=== PATIENT | female | born 1960 | race Caucasian/White ===

== ENCOUNTER → 2018-06-04 09:01 | Outpatient (CLI) | payer OTHER, SELFPAY ==
[2018-06-04 10:31] LABS: Add Manual Diff / Slide Review NO; Basophils Percent Auto 0.9 % (0-2); Eosinophils Percent Auto 4.1 % (2-4); Hematocrit 40.7 % (36-46); Hemoglobin 13.8 g/dL (12.0-16.0); Lymphocytes Percent Auto 31.4 % (25-40); Mean Corpuscular HGB Conc 33.9 % (30-36); Mean Corpuscular Hemoglobin 32.7 PG (26-34); Mean Corpuscular Volume 96.4 fL (80-100); Monocytes Percent Auto 8.6 % (3-14); Neutrophils Absolute Auto 3400 /uL (3000-5900); Platelet Count 180 X10^3/uL (150-400); Red Blood Cell Count 4.23 X10^6/uL (4.0-5.2); Red Cell Distribution Width 12.3 % (11.6-14.8); White Blood Cell Count 6.2 X10^3/uL (4.5-11.0)
[2018-06-04 10:42] LABS: Alanine Aminotransferase 41 IU/L (9-52); Albumin 4.4 g/dL (3.5-5.0); Albumin Globulin Ratio 1.9 (1.0-2.8); Alkaline Phosphatase 49 U/L (38-126); Aspartate Aminotransferase 31 IU/L (14-36); BUN Creatinine Ratio 27.1 (6-22); Bilirubin Total 0.6 mg/dL (0.2-1.3); Blood Urea Nitrogen 19 mg/dL (7-17); Calcium 9.8 mg/dL (8.4-10.2); Carbon Dioxide 26 mmol/L (22-32); Chloride 102 mmol/L (98-107); Cholesterol 168 mg/dL (140-199); Estimated Glomerular Filt Rate > 60.0 mL/min (>60); Globulin 2.3 g/dL (1.7-4.1); Glucose 91 mg/dL (70-100); HDL Cholesterol 53 mg/dL (40-60); HEMOLYSIS < 15 (0-50); LDL Cholesterol Calculated 105 mg/dL (<100); Potassium 4.9 mmol/L (3.4-5.1); Sodium 141 mmol/L (137-145); Total Protein 6.7 g/dL (6.3-8.2); Triglycerides 48 mg/dL (35-150)
[2018-06-04 11:13] LABS: Thyroid Stimulating Hormone 1.57 uIU/mL (0.47-4.68)
== END ==
PROVIDERS: Visit Provider Internal Medicine
DX: Z00.00 Encounter for general adult medical examination without abnormal findings (principal)
CPT/HCPCS: 36415; 80053; 80061; 84443; 85025

== ENCOUNTER 2018-06-23 11:15 | Day surgery (SDC) | payer OTHER, SELFPAY ==
[2018-06-23 11:38] VITALS: BP 112/71; PULSE 67; RESP 15; TEMP 36.2; O2SAT 99; BMI 26.1
[2018-06-23] MEDS: SODIUM CHLORIDE 0.9% 1,000 ML 200 ML IV (11:48)
[2018-06-23] MEDS: MIDAZOLAM 5 MG/5 ML VIAL IV (11:55)
[2018-06-23] MEDS: fentaNYL 250 MCG/5 ML INJ IV (11:55)
[2018-06-23 12:20] VITALS: BP 100/63; PULSE 67; RESP 16; TEMP 37; O2SAT 98
--- NOTE | 2018-06-23 14:11 | OP_ITS ---
DATE OF SERVICE: 06/23/2018 PREOP DIAGNOSIS: Screening colonoscopy. POSTOP DIAGNOSES: Normal colonoscopy. OPERATION: Total colonoscopy to the cecum. SURGEON: Ye Betancourt MD DESCRIPTION OF PROCEDURE: The patient was properly identified during surgical pause, given conscious sedation with Versed and fentanyl. The flexible fiberoptic colonoscope inserted transanally to the cecum. Patient has a normal exam. No polyps, no tumors, no diverticulosis. The procedure was very well tolerated. Amanda Nelson - /nadine/frederick doc#: [id number]/job#: [id number] dd: 06/23/2018 12:25:00 dt: 06/23/2018 14:00:00 DICTATING MD/COPIES TO: Ye Betacnourt MD COPIES MNE: MATTHEW
--- NOTE | 2018-06-24 07:47 | HP_ITS ---
DATE OF SERVICE: 06/23/2018 PREOPERATIVE HISTORY AND PHYSICAL HISTORY OF PRESENT ILLNESS: Coming in for a screening colonoscopy, having had no prior colonoscopy and has no melena, no hematochezia, no abdominal pain. PAST MEDICAL HISTORY: Denies abdominal surgical procedures. No history of hypertension, diabetes, or heart disease. MEDICATIONS: Takes no significant medications. ALLERGIES: HAS NO KNOWN MEDICAL ALLERGIES. REVIEW OF SYSTEMS: System review is negative for chest pain, unusual shortness of breath. GI: Negative. : Negative. NEUROLOGIC: No strokes. No seizures.. PHYSICAL EXAMINATION VITAL SIGNS: Blood pressure 130/80. Heart rate in the 80s. HEENT: Ears, nose, and throat are normal. NECK: No adenopathy. LUNGS: Clear. HEART: Regular rhythm. She may have a slight systolic ejection murmur. No diastolic murmurs. ABDOMEN: Soft. No organomegaly. No tenderness. RECTAL: Exam will be done at the time of colonoscopy. DIAGNOSIS: Screening colonoscopy. Amanda Nelson - /nadine/frederick doc#: [id number]/job#: [id number] dd: 06/23/2018 11:49:00 dt: 06/23/2018 13:42:00 DICTATING MD/COPIES TO: Ye Betancourt MD COPIES MNE: MATTHEW
== END 2018-06-23 12:55 | disposition home or self-care (01) ==
PROVIDERS: Visit Provider Surgery
PROC: 0DJD8ZZ Inspection of Lower Intestinal Tract, Via Natural or Artificial Opening Endoscopic (ICD-10-PCS; CPT 45378; principal; 2018-06-23 12:45)
DX: Z12.11 Encounter for screening for malignant neoplasm of colon (principal)
CPT/HCPCS: 45378; J2250; J3010

== ENCOUNTER → 2018-09-27 09:24 | Outpatient (CLI) | payer OTHER, SELFPAY ==
--- NOTE | 2018-09-27 | DI.MG.S_ITS ---
BILATERAL DIGITAL SCREENING MAMMOGRAM 3D/2D WITH CAD: 09/27/2018 CLINICAL: Routine screening. Comparison is made to exams dated: 07/10/2017 mammogram, 11/18/2014 mammogram, and 08/14/2013 mammogram - [facility]. There are scattered fibroglandular elements in both breasts. Current study was also evaluated with a Computer Aided Detection (CAD) system. No significant masses, calcifications, or other findings are seen in either breast. There has been no significant interval change. IMPRESSION: NEGATIVE There is no mammographic evidence of malignancy. A 1 year screening mammogram is recommended. This exam was interpreted at Station ID: [id number]. NOTE: For mammograms, a report in lay terms will be sent to the patient. Approximately 15% of breast malignancies will not be visualized mammographically. In the management of a palpable breast mass, a negative mammogram must not discourage biopsy of a clinically suspicious lesion. Electronically Signed By: Kyle Bose M.D. at/melida:09/29/2018 12:32:52 letter sent: Normal Exam ACR BI-RADS Category 1: Negative 3341F
== END ==
PROVIDERS: Visit Provider Internal Medicine
DX: Z12.31 Encounter for screening mammogram for malignant neoplasm of breast (principal)
CPT/HCPCS: 77063; 77067

== ENCOUNTER → 2020-09-03 14:46 | Outpatient (CLI) | payer OTHER, SELFPAY ==
--- NOTE | 2020-09-03 14:47 | DI.MG.S_ITS ---
BILATERAL DIGITAL SCREENING MAMMOGRAM 3D/2D WITH CAD: 09/03/2020 CLINICAL: Routine screening. Comparison is made to exams dated: 09/27/2018 mammogram, 07/10/2017 mammogram, and 11/18/2014 mammogram - [facility]. There are scattered fibroglandular elements in both breasts. Current study was also evaluated with a Computer Aided Detection (CAD) system. No significant masses, calcifications, or other findings are seen in either breast. There has been no significant interval change. IMPRESSION: NEGATIVE There is no mammographic evidence of malignancy. A 1 year screening mammogram is recommended. This exam was interpreted at Station ID: [id number]. NOTE: For mammograms, a report in lay terms will be sent to the patient. Approximately 15% of breast malignancies will not be visualized mammographically. In the management of a palpable breast mass, a negative mammogram must not discourage biopsy of a clinically suspicious lesion. Electronically Signed By: Kyle parra/melida:09/05/2020 09:05:43 letter sent: Normal Exam ACR BI-RADS Category 1: Negative 3341F
== END ==
PROVIDERS: Referring Provider Internal Medicine; Visit Provider Internal Medicine
DX: Z12.31 Encounter for screening mammogram for malignant neoplasm of breast (principal)
CPT/HCPCS: 77063; 77067

== ENCOUNTER 2020-10-20 16:15 | Emergency (ER) | payer SELFPAY ==
[2020-10-20 16:18] VITALS: BP 128/63; PULSE 74; RESP 15; TEMP 36.3; O2SAT 99; BMI 24.9
--- NOTE | 2020-10-20 16:23 | DI.RAD.S_ITS ---
PROCEDURE: XR WRIST RT MIN 3V INDICATIONS: wrist injury TECHNIQUE: 4 views of the wrist were acquired. COMPARISON: None. FINDINGS: Bones: Comminuted, intra-articular fracture of the distal radius noted. Scaphoid view: Scaphoid is intact. Soft tissues: No suspicious soft tissue calcifications. IMPRESSION: Comminuted, intra-articular distal radius fracture. Dictated by: Iris Parker MD, PhD on 10/20/2020 at 16:49 Approved by: Iris Parker MD, PhD on 10/20/2020 at 16:51
--- NOTE | 2020-10-20 18:00 | ED_ITS ---
HPI - Extremity Injury (Upper) General Chief Complaint: Extremity Injury, Upper Stated Complaint: right wrist injury Time Seen by Provider: 10/20/20 18:00 Source: patient Mode of arrival: Ambulatory Limitations: no limitations History of Present Illness HPI narrative: 60-year-old otherwise healthy woman who was roller skating with her grandson earlier today and had a fall on her outstretched right hand and has suffered a right distal radius fracture. Related Data Home Medications Medication Instructions Recorded Confirmed No Known Home Medications 06/09/18 06/23/18 Allergies Allergy/AdvReac Type Severity Reaction Status Date / Time No Known Drug Allergies Allergy Verified 10/20/20 16:20 Review of Systems Review of Systems Narrative: Pertinent positive and negative findings as per HPI Remainder of review of systems is otherwise unremarkable for Constitutional: Fevers, chills, weakness ENT: No sore throat, neck pain, ear pain CV: Chest pain, palpitations, Respiratory: Cough, wheeze, dyspnea GI: Nausea, vomiting, diarrhea, : Dysuria, hematuria, Patient History Medical History Chronic cough (~2014) Hyperlipidemia Surgical History Anesthesia History of third molar tooth extraction (~1978) History of tonsillectomy (~1970) Family History Father Age: 89 CAD (coronary artery disease) Hyperlipidemia Hypertension Grandfather Lung cancer Grandmother Lung cancer Mother Age: 89 Exposure to fenfluramine- phentermine combination Grandmother Appendicitis Sister Enlarged heart Son Congenital heart anomaly Social History household members: spouse Smoking Status: Former smoker Smoking Status: Former smoker alcohol intake frequency: a few times a week Alcohol type: wine Substance Use Type: does not use Exam Narrative Exam Narrative: General: Alert appropriate in no acute distress Respiratory: Able to speak in full sentences, no obvious respiratory distress Skin: No obvious rashes, warm and dry Neurologic: Grossly intact no obvious asymmetries or abnormalities Psych; appropriate insight and affect, cooperative Right wrist with ecchymosis and some swelling. Decreased range of motion secondary to pain med neurovascularly intact. No contusions or skin breakdown. Initial Vital Signs Initial Vital Signs: Vital Signs Temperature 97.4 F L 10/20/20 16:18 Pulse Rate 74 10/20/20 16:18 Respiratory Rate 15 10/20/20 16:18 Blood Pressure 128/63 10/20/20 16:18 Pulse Oximetry 99 10/20/20 16:18 Procedures Orthopedic Splinting/Casting Right distal radius fracture: Side: right Upper Extremity Injury Location: wrist Upper Extremity Immobilizer: volar splint Other Orthopedic Equipment: other (Sling) Post splinting neuro exam: intact Post splinting vascular exam: intact Placed by: Provider Course Orders Ordered: ED Orders 10/20/20 16:23 XR wrist RT min 3V Stat 10/20/20 18:59 CT UE RT wo con Stat Vital Signs Vital signs: Vital Signs - 8 hr 10/20/20 16:18 10/20/20 18:35 Temperature 97.4 F L Pulse Rate 74 Pulse Rate [Right] 67 Respiratory Rate 15 Blood Pressure 128/63 Pulse Oximetry 99 MDM - Extremity Injury (Upper) Imaging Data XR wrist: Radiologist's Impression: FINDINGS: Bones: Comminuted, intra-articular fracture of the distal radius noted. Scaphoid view: Scaphoid is intact. Soft tissues: No suspicious soft tissue calcifications. IMPRESSION: Comminuted, intra-articular distal radius fracture. Dictated by: Iris Parker MD, PhD on 10/20/2020 at 16:49 MDM Narrative Medical decision making narrative: 60-year-old woman with comminuted intra- articular distal radius fracture. She is splinted. After discussion with Dr. Kebede, preoperative CT scan of the wrist is ordered. Patient will follow-up with Dr. Kebede in the next week for definitive treatment. Care is reviewed with Dr. Kebede patient is safe for home discharge Discharge Plan Departure Patient Disposition: Home Clinical Impression: Distal radius fracture, right Qualifiers: Encounter type: initial encounter Fracture type: closed Fracture morphology: unspecified fracture morphology Qualified Code(s): S52.501A - Unspecified fracture of the lower end of right radius, initial encounter for closed fracture Instructions: DI for Wrist Fracture Activity Restrictions/Additional Instructions: Thank you for coming in today You did break your wrist and the fracture lines do go into the joint itself. You have been placed in a splint and this needs to stay on until you see the orthopedic surgeon. You may well need surgery for this to heal completely. We did do a CT scan in the emergency department to help the orthopedic surgeon treat you most appropriately. Dr. Kebede will be expecting to see you in the office sometime next week. Please call tomorrow to schedule an appointment I hope you heal quickly Prescriptions: No Action No Known Home Medications RF: 0 Referrals: Ana Kebede MD [Physician] -
[2020-10-20 18:35] VITALS: PULSE 67
--- NOTE | 2020-10-20 18:59 | DI.CT.S_ITS ---
PROCEDURE: CT UE RT WO CON INDICATIONS: wrist, pre-op TECHNIQUE: Noncontrast 1 mm axial sections acquired through the carpal bones, with coronal and sagittal reformats. COMPARISON: [facility], CR, XR WRIST RT MIN 3V, 10/20/2020, 16:21. FINDINGS: Image quality: Excellent. Bones: There is a comminuted mildly impacted fracture of the distal radius with involvement of the radiocarpal and distal radioulnar joints. The ulnar appears intact. Remaining visualized osseous structures in the hand also appear intact. Soft tissues: There is periarticular soft tissue swelling and subcutaneous edema. Visualized flexor and extensor tendons appear intact. IMPRESSION: 1. Comminuted mildly impacted intra-articular fracture of the distal radius. Dictated by: Kamaljit Saavedra M.D. on 10/20/2020 at 20:07 Approved by: Kamaljit Saavedra M.D. on 10/20/2020 at 20:14
[2020-10-20 20:27] VITALS: BP 151/68; PULSE 76; RESP 14; O2SAT 100
== END 2020-10-20 20:30 | disposition home or self-care (01) ==
PROVIDERS: Emergency Provider Emergency Medicine
DX: S52.501A Unspecified fracture of the lower end of right radius, initial encounter for closed fracture (principal); V00.121A Fall from non-in-line roller-skates, initial encounter
CPT/HCPCS: 29125; 73110; 73200; 99282; 99283

== ENCOUNTER 2020-10-21 13:34 | Day surgery (SDC) | payer SELFPAY ==
[2020-10-21 14:10] VITALS: BP 131/57; PULSE 62; RESP 16; TEMP 37.2; O2SAT 100
[2020-10-21 14:16] VITALS: BMI 24.9
[2020-10-21 14:23] LABS: COVID19 -Nasal RAPID Negative (Negative)
[2020-10-21] MEDS: LACTATED RINGERS 1,000 ML 42 ML IV (14:34)
--- NOTE | 2020-10-21 16:27 | P.HP_ITS ---
History of Present Illness History of Present Illness Date Patient Seen: 10/21/20 Time Patient Seen: 16:27 Date of Onset of Symptoms: 10/20/20 Chief complaint: SDC Narrative: This is a pleasant 60-year-old female who was roller skating with her grandson when she got crashed into by a child skater and fell on her outstretched right hand. She is right-hand dominant. She is athletic she works out and she wishes she had gone skiing Instead of roller skating. Patient History Medical History Chronic cough (~2014) Hyperlipidemia Surgical History Anesthesia History of third molar tooth extraction (~1978) History of tonsillectomy (~1970) Family & Social History Family History Father Age: 89 CAD (coronary artery disease) Hyperlipidemia Hypertension Grandfather Lung cancer Grandmother Lung cancer Mother Age: 89 Exposure to fenfluramine- phentermine combination Grandmother Appendicitis Sister Enlarged heart Son Congenital heart anomaly Social History: household members spouse Tobacco & Substance use: Smoking Status Former smoker alcohol intake frequency a few times a week Substance Use Type does not use Meds Home Medications and Allergies Home Medications Medication Instructions Recorded Confirmed Type No Known Home Medications 06/09/18 10/21/20 History Allergies Allergy/AdvReac Type Severity Reaction Status Date / Time No Known Drug Allergies Allergy Verified 10/20/20 16:20 Review of Systems Review of Systems Narrative: she is healthy has no medical problems and had no issues other than her right wrist pain. Exam Vital Signs (past 8 hours): - 10/21/20 14:10 Temperature 98.9 F Pulse Rate 62 Respiratory Rate 16 Blood Pressure 131/57 L Pulse Oximetry 100 Oxygen Delivery Method Room Air Narrative Exam Narrative: HEENT is benign lungs are clear cor regular rate and rhythm abdomen soft and benign, her right upper extremity has obvious swelling in the in fingers distally she is able to fire her finger flexors and extensors, she has minimal numbness distally on the palmar and dorsal aspect of her hand, she has fair range of motion into her elbow and fair range of motion in her shoulder. Objective Labs Labs: Laboratory Results - last 24 hr 10/21/20 14:00 SARS-CoV-2 (PCR) Negative X-rays show a comminuted intra-articular right distal radius fracture. CT scan confirms that it is comminuted and intra-articular with displacement. It is multiple more than 3 fragments. Assessment & Plan Assessment & Plan narrative: The comminuted displaced right distal intra- articular radius fracture recommendations and plan is for open reduction internal fixation. The procedure alternatives risks benefits and complications were discussed in detail. She is physically active she is right hand dominant and she likes to be athletic and play pickleball. We will go ahead and proceed with ORIF today.
--- NOTE | 2020-10-21 16:31 | PM.OP.1 ---
Operative Date/Time/Diagnoses Date of procedure: 10/21/20 Time of procedure: 16:47 Pre-op diagnosis: Right comminuted intra-articular distal radius fracture with displacement Post-op diagnosis: same Procedure & Clinicians Procedure: open reduction internal fixation right comminuted 3+ part distal intra-articular radius fracture Same procedure as scheduled: Yes Indications: this is a 60-year-old female was skating with her grandson and fell on her outstretched right hand and sustained a displaced intra-articular right distal radius fracture. She is brought the operating room for open reduction internal fixation. Surgeon: Ana Kebede Vending Machine Technician: Sanchez Pritchett Anesthesia Type: General Operative Notes Findings: comminuted distal radius fracture. Acceptable reduction and stable fixation Closure Type: primary Specimen(s): none sent Prosthetic devices, grafts, tissues, transplants, or devices: DVR anatomic plate volar radius, short right narrow Estimated Blood Loss (mL): 50 Blood products transfused: none Tourniquet time (min): 70 Procedure in detail: patient is brought to the operating room. She underwent the induction of a general anesthesia. Her right upper extremities prepped draped standard sterile fashion. High arm tourniquet was applied and elevate it at 250 mm of mercury for 70 minutes she was given IV antibiotics. A time-out was performed. A volar incision was made dissection was carried out through skin and subcutaneous tissues. Self-retaining retractors were used as well as right nails. Dissection was carried out down along the flexor carpi radialis. It was retracted ulnarly and an incision was made in the underlying sheath. The muscle was gently stripped from the distal radius. There was good visualization of the fracture. Fracture was anatomically reduced. There was significant displacement of the motion volar fragment and there was separate radial styloid fragment. The fracture was meticulously reduced and held it was then carefully fixed with DVR volar plate which is initially secured to the shaft and then the plate was and fracture were adjusted distally to optimize fixation. There was adequate fixation of the distal radius and good overall alignment. She did have fairly soft bone. There was some comminution. A temporarily fix the radial styloid fracture fragment piece with a separate K-wire. And then was able to ski secure the radial styloid Fragment with screws through the plate. it was a comminuted intra-articular 3+ fragment distal radius but acceptable alignment and reduction was achieved. Mini C-arm confirmed position of the plate screws and fracture. The wound was meticulously irrigated with normal saline. Marcaine was injected. I was able to remove the separate K-wire and the root radial fragment appeared stable. The muscle was reapproximated to the radius with interrupted Vicryl. The skin was reapproximated with several interrupted Vicryl and nylon. The wound was dressed sterilely and she was placed in a short-arm sugar-tong splint. She tolerated the procedure well. Complications: none Post-operative Condition: stable Disposition: same day surgery Plan for aftercare: elevate wrist. Return to clinic in 10 days for x-rays out of splint and probable suture removal.
[2020-10-21] MEDS: CEFAZOLIN 2 GM/100 ML FROZ.PIGGY IV (16:40)
--- NOTE | 2020-10-21 17:15 | SUR.OPER ---
Supine on padded OR bed, head on pillow, left arm secured on padded arm boards at <90 degrees abduction, right arm on padded wide arm board and in control of the surgeon. Legs uncrossed, pillow under knees, heels floated, safety belt at thigh, tape over blanket over lower legs.
[2020-10-21] MEDS: BUPIVACAINE 0.5% (PF) VIAL 30 ML INJ (17:21)
[2020-10-21 18:31] VITALS: BP 139/59; PULSE 75; RESP 11; TEMP 36.6; O2SAT 96
[2020-10-21 18:37] VITALS: BP 141/45; PULSE 72; RESP 17; O2SAT 98
[2020-10-21 18:42] VITALS: BP 122/61; PULSE 72; RESP 12; O2SAT 99
[2020-10-21 18:51] VITALS: BP 151/66; PULSE 71; RESP 12; O2SAT 99
[2020-10-21] MEDS: ACETAMINOPHEN 325 MG TABLET 975 MG PO (18:51)
[2020-10-21] MEDS: OXYCODONE IR 5 MG TABLET PO (18:52)
[2020-10-21] MEDS: ONDANSETRON 4 MG/2 ML INJ IV (18:55)
[2020-10-21 19:06] VITALS: BP 159/63; PULSE 68; RESP 12; O2SAT 98
== END 2020-10-21 19:31 | disposition home or self-care (01) ==
PROVIDERS: PCP Internal Medicine; Referring Provider Orthopaedic Surgery; Visit Provider Orthopaedic Surgery
PROC: (CPT 25609; principal; 2020-10-21 15:15)
DX: S52.571A Other intraarticular fracture of lower end of right radius, initial encounter for closed fracture (principal); W01.0XXA Fall on same level from slipping, tripping and stumbling without subsequent striking against object, initial encounter; Y93.51 Activity, roller skating (inline) and skateboarding; E78.5 Hyperlipidemia, unspecified; Z20.822 Contact with and (suspected) exposure to COVID-19
CPT/HCPCS: 25609; 87635; J0690; J1100; J2250; J2405; J2704; J3010

== ENCOUNTER → 2021-12-15 08:17 | Outpatient (CLI) | payer OTHER, SELFPAY ==
--- NOTE | 2021-12-15 | DI.MG.S_ITS ---
BILATERAL DIGITAL SCREENING MAMMOGRAM 3D/2D WITH CAD: 12/15/2021 CLINICAL: Routine screening. Comparison is made to exams dated: 09/03/2020 mammogram, 09/27/2018 mammogram, and 07/10/2017 mammogram - [facility]. The tissue of both breasts is predominantly fatty. Current study was also evaluated with a Computer Aided Detection (CAD) system. No significant masses, calcifications, or other findings are seen in either breast. There has been no significant interval change. IMPRESSION: NEGATIVE There is no mammographic evidence of malignancy. A 1 year screening mammogram is recommended. This exam was interpreted at Station ID: [id number]. NOTE: For mammograms, a report in lay terms will be sent to the patient. Approximately 15% of breast malignancies will not be visualized mammographically. In the management of a palpable breast mass, a negative mammogram must not discourage biopsy of a clinically suspicious lesion. Electronically Signed By: Amita carbone/melida:12/15/2021 10:56:15 letter sent: Normal Exam ACR BI-RADS Category 1: Negative 3341F
== END ==
PROVIDERS: PCP Internal Medicine; Referring Provider Internal Medicine; Visit Provider Internal Medicine
DX: Z12.31 Encounter for screening mammogram for malignant neoplasm of breast (principal)
CPT/HCPCS: 77063; 77067

== ENCOUNTER → 2023-01-17 15:57 | Outpatient (CLI) | payer OTHER, SELFPAY ==
--- NOTE | 2023-01-17 | DI.MG.S_ITS ---
BILATERAL DIGITAL SCREENING MAMMOGRAM 3D/2D WITH CAD: 01/17/2023 CLINICAL: Routine screening. Comparison is made to exams dated: 12/15/2021 mammogram, 09/03/2020 mammogram, 09/27/2018 mammogram, and 07/10/2017 mammogram - [facility]. There are scattered areas of fibroglandular density in both breasts (category b / 25%-50% glandular tissue). Current study was also evaluated with a Computer Aided Detection (CAD) system. No significant masses, calcifications, or other findings are seen in either breast. There has been no significant interval change. IMPRESSION: NEGATIVE There is no mammographic evidence of malignancy. A 1 year screening mammogram is recommended. Based on the Tyrer Cuzick model (a risk assessment model) the patient's lifetime risk is 8.2% and her 10 year risk is 3.6%. According to the ACR, ACS, and NCCN guidelines, an annual breast MRI exam along with mammogram is recommended if the patient's lifetime risk is 20% or greater. This exam was interpreted at Station ID: [id number]. NOTE: For mammograms, a report in lay terms will be sent to the patient. Approximately 15% of breast malignancies will not be visualized mammographically. In the management of a palpable breast mass, a negative mammogram must not discourage biopsy of a clinically suspicious lesion. Electronically Signed By: Jaime bialey/melida:01/18/2023 08:35:43 letter sent: Normal Exam ACR BI-RADS Category 1: Negative 3341F
== END ==
PROVIDERS: PCP Internal Medicine; Referring Provider Internal Medicine; Visit Provider Internal Medicine
DX: Z12.31 Encounter for screening mammogram for malignant neoplasm of breast (principal)
CPT/HCPCS: 77063; 77067

== ENCOUNTER → 2023-11-25 07:41 | Outpatient (CLI) | payer OTHER, SELFPAY ==
--- NOTE | 2023-11-25 07:51 | DI.RAD.S_ITS ---
PROCEDURE: XR RIBS LT MIN 3V W CXR1V INDICATIONS: Left rib pain TECHNIQUE: 2 views of the ribs were acquired, along with a single view chest. COMPARISON: [facility], , CHEST 2 VIEW, 11/09/2014, 9:52. FINDINGS: Surgical changes and devices: None. Bones and chest wall: Acute, minimally displaced lateral rib fractures of the left 6th through 9th ribs. No suspicious bony lesions. Overlying soft tissues appear unremarkable. Lungs and pleura: Mild streaky opacities of the bilateral lung bases more pronounced on the right likely representing atelectasis. Mild blunting of the right costophrenic angle. No pneumothorax. Mediastinum: Mediastinal contours appear normal. Heart size is normal. IMPRESSION: Acute, minimally displaced fractures involving the lateral left 6th through 9th ribs. No pneumothorax. Streaky opacities of the lung bases bilaterally favored to represent atelectasis. New blunting of the right costophrenic angle may represent pleural thickening or small pleural effusion. Dictated by: Kyle Bose M.D. on 11/25/2023 at 9:10 Approved by: Kyle Bose M.D. on 11/25/2023 at 9:13
== END ==
PROVIDERS: PCP Internal Medicine; Referring Provider Nurse Practitioner Family; Visit Provider Nurse Practitioner Family
DX: R07.81 Pleurodynia (principal)
CPT/HCPCS: 71101

== ENCOUNTER → 2024-03-17 08:26 | Outpatient (CLI) | payer OTHER, SELFPAY ==
--- NOTE | 2024-03-17 08:27 | DI.MG.S_ITS ---
BILATERAL DIGITAL SCREENING MAMMOGRAM 3D/2D WITH CAD: 03/17/2024 CLINICAL: Routine screening. Comparison is made to exams dated: 01/17/2023 mammogram, 12/15/2021 mammogram, and 09/03/2020 mammogram - [facility]. There are scattered areas of fibroglandular density in both breasts (category b / 25%-50% glandular tissue). Current study was also evaluated with a Computer Aided Detection (CAD) system. No significant masses, calcifications, or other findings are seen in either breast. There has been no significant interval change. IMPRESSION: NEGATIVE There is no mammographic evidence of malignancy. A 1 year screening mammogram is recommended. Based on the Tyrer Cuzick model (a risk assessment model) the patient's lifetime risk is 8.0% and her 10 year risk is 3.6%. According to the ACR, ACS, and NCCN guidelines, an annual breast MRI exam along with mammogram is recommended if the patient's lifetime risk is 20% or greater. This exam was interpreted at Station ID: [id number]. NOTE: For mammograms, a report in lay terms will be sent to the patient. Approximately 15% of breast malignancies will not be visualized mammographically. In the management of a palpable breast mass, a negative mammogram must not discourage biopsy of a clinically suspicious lesion. Electronically Signed By: Jaime bailey/melida:03/17/2024 10:05:44 letter sent: Normal Exam ACR BI-RADS Category 1: Negative 3341F
== END ==
PROVIDERS: PCP Internal Medicine; Referring Provider Internal Medicine; Visit Provider Internal Medicine
DX: Z12.31 Encounter for screening mammogram for malignant neoplasm of breast (principal); R92.323 Mammographic fibroglandular density, bilateral breasts
CPT/HCPCS: 77063; 77067

== ENCOUNTER → 2025-03-22 08:10 | Outpatient (CLI) | payer OTHER, SELFPAY ==
--- NOTE | 2025-03-22 08:12 | DI.MG.S_ITS ---
MM screening mammo BI: 03/22/2025. BI-RADS: 1 CLINICAL: 65-year old female for bilateral screening mammogram. Tyrer-Cuzick lifetime risk of 5.2%. No personal or first-degree family history of breast cancer. PRIOR EXAMS 03/17/2024, 01/17/2023, 12/15/2021, 09/03/2020, MAMMOGRAPHY TECHNIQUE: 2D and 3D (tomosynthesis) digital mammographic views obtained, with additional images as needed for full coverage. Current study was also evaluated with a Computer Aided Detection (CAD) system. DENSITY B. There are scattered areas of fibroglandular density. MAMMOGRAPHY FINDINGS Bilateral: No suspicious mass, asymmetry, microcalcification, or other abnormality seen. IMPRESSION: * No evidence of malignancy. RECOMMENDATIONS Bilateral * Annual screening mammography. OVERALL ASSESSMENT CATEGORY BI-RADS-1: Negative. The [employer] recommends annual screening mammography beginning at age 40 for women with average risk of breast cancer. ELECTRONICALLY SIGNED: Carla Davis M.D. on 03/25/2025 at 08:09:41 AM PT Interpreting Station ID: [id number]
== END ==
PROVIDERS: PCP Registered Nurse; Referring Provider Registered Nurse; Visit Provider Registered Nurse
DX: Z12.31 Encounter for screening mammogram for malignant neoplasm of breast (principal)
CPT/HCPCS: 77063; 77067